=== PATIENT | female | born 1950 | race Caucasian/White ===

== ENCOUNTER 2017-06-16 10:16 | Outpatient (CLI) | payer MEDICARE, OTHER ==
--- NOTE | 2017-06-16 11:24 | SJPRAD ---
RIGHT FOOT 3 VIEWS: Date: 06/16/17 HISTORY: Right foot pain. FINDINGS/IMPRESSION: No fracture, dislocation, or bony destruction is identified. POS: [facility]
== END 2017-06-16 10:17 | disposition home or self-care (01) ==
LOC: MWLC RAD 10:16
PROVIDERS: ATTEND Internal Medicine Geriatric Medicine
DX: M79.671 Pain in right foot (principal)

== ENCOUNTER 2018-01-20 05:48 | Observation (INO) | payer MEDICARE, OTHER ==
[2018-01-19 12:44] VITALS: BMI 29.5
[2018-01-20 06:26] LABS: #Basophils 0.1 thou/uL (0.0-0.2); #Eosinphils 0.2 thou/uL (0.0-0.7); #Lymphocytes 2.8 thou/uL (1.20-3.40); #Monocytes 0.9 thou/uL (0.11-0.59); %Basophils 0.9 % (0.0-1.0); %Eosinophils 1.8 % (0.0-10.0); %Lymphocytes 28.1 % (21.0-51.0); %Monocytes 9.1 % (0.0-10.0); %Neutrophils 60.1 % (42.0-75.0); Hemoglobin 13.6 g/dL (12.0-16.0); Mean Corpuscular HGB CONC 34.4 g/dL (32.0-36.0); Mean Corpuscular Hemoglobin 31.8 pg (27.0-31.0); Mean Corpuscular Volume 92.4 fl (81.0-99.0); Mean Platelet Volume 7.5 fL (7.4-10.4); Platelet Count 227 thou/uL (130-400); RBC Distribution Width 12.3 % (11.5-14.5); Red Blood Cell (RBC) Count 4.26 mill/uL (4.20-5.40); White Blood Cell (WBC) Count 9.9 thou/uL (4.8-10.8)
[2018-01-20] MEDS ORDERED: HYDROmorphone 0.5 MG/0.5 ML SYRINGE ONE (06:28)
[2018-01-20] MEDS ORDERED: Fentanyl 250 MCG/5 ML VIAL ONE (06:28)
[2018-01-20] MEDS ORDERED: Calcium Chloride 1 GM/10 ML Abboject SYRINGE ONE (06:35)
[2018-01-20] MEDS ORDERED: Thrombin 5000 UNITS/5 ML VIAL ONE ×2 (06:35)
[2018-01-20] MEDS ORDERED: Bupivacaine HCl 0.5%/Epinephrine 1:200,000/PF 30 ml Vial ONE (06:35)
[2018-01-20] MEDS ORDERED: Lidocaine 1% w/Epinephrine 1:200K 30 ML VIAL ONE (06:35)
[2018-01-20] MEDS ORDERED: Lidocaine 4% Topical Sol 50 ML BOT ONE (06:38)
[2018-01-20 06:45] LABS: Anion Gap 9 mmol/L (10-20); BUN (Urea Nitrogen) 24 mg/dL (9.8-20.1); Calc. Creatinine Clearance 68 mL/min (70-130); Calcium 8.6 mg/dL (7.8-10.44); Carbon Dioxide 26 mmol/L (23-31); Chloride 103 mmol/L (98-107); Estimated GFR-MDRD 68; Glucose 114 mg/dL (80-115); Potassium 3.9 mmol/L (3.5-5.1); Sodium 134 mmol/L (136-145)
[2018-01-20] MEDS ORDERED: CEFAZOLIN/Water 2 GM/20 ML SYRINGE ONE (06:51)
[2018-01-20] MEDS ORDERED: Midazolam HCl 2 mg/2 ml Vial ONE (06:53)
[2018-01-20] MEDS ORDERED: Metoclopramide HCl 10 MG/2 ML VIAL ONE (08:23)
[2018-01-20] MEDS ORDERED: Ondansetron HCl/PF 4 MG/2 ML Vial ONE ×2 (08:23→10:47)
[2018-01-20] MEDS ORDERED: diphenhydrAMINE 25 MG CAP PO PRN (10:43)
[2018-01-20] MEDS ORDERED: Acetaminophen/Codeine 30-300mg Tablet PO PRN (10:43)
[2018-01-20] MEDS ORDERED: Ondansetron HCl/PF 4 MG/2 ML Vial IVP PRN (10:43)
[2018-01-20] MEDS ORDERED: Bisacodyl 10 MG SUPP PR PRN (10:43)
[2018-01-20] MEDS ORDERED: Promethazine HCl 25 MG/ML VIAL IM PRN (10:43)
[2018-01-20] MEDS ORDERED: Zolpidem Tartrate 5 MG TAB PO PRN (10:43)
[2018-01-20] MEDS ORDERED: PHENYLEPHRINE-NS 100 MCG/ML 10 ML SYRINGE ONE (10:47)
[2018-01-20] MEDS ORDERED: Glycopyrrolate 0.2 MG/ML 5 ML SYRINGE ONE (10:47)
[2018-01-20] MEDS ORDERED: Ketorolac Tromethamine 30 MG/ML VIAL ONE (10:47)
[2018-01-20] MEDS ORDERED: diphenhydrAMINE 50 MG/ML VIAL ONE (10:47)
[2018-01-20] MEDS ORDERED: PROPOFOL 200 MG/20 ML VIAL ONE (10:47)
[2018-01-20] MEDS ORDERED: Dexamethasone 20 MG/5 ML VIAL ONE (10:47)
[2018-01-20] MEDS ORDERED: Lidocaine 1% PF 5 ML VIAL ONE (10:47)
[2018-01-20] MEDS: Ketorolac Tromethamine 30 MG/ML VIAL IVP SCH ×2 (12:20→17:16)
[2018-01-20] MEDS: Lactated Ringer's 1,000 ML IV SCH ×2 (12:54→19:42)
[2018-01-20] MEDS ORDERED: Lisinopril 10 MG TAB PO SCH (14:30)
[2018-01-20] MEDS: Simethicone Chewable 80 MG TAB PO PRN ×2 (14:53→23:40)
[2018-01-20] MEDS: Acetaminophen/Codeine 30-300mg Tablet PO PRN (23:40)
[2018-01-21] MEDS: Ketorolac Tromethamine 30 MG/ML VIAL IVP SCH ×3 (00:46→13:09)
[2018-01-21] MEDS: Lactated Ringer's 1,000 ML IV SCH ×2 (03:16→13:09)
[2018-01-21] MEDS: Acetaminophen/Codeine 30-300mg Tablet PO PRN ×2 (06:09→13:20)
[2018-01-21] MEDS ORDERED: Lisinopril 10 MG TAB PO SCH (09:00)
[2018-01-21 09:35] VITALS: TEMP 97.9
[2018-01-21 10:59] VITALS: BP 131/55
[2018-01-26] MEDS ORDERED: IBANDRONATE SODIUM 150 MG PO SCH (06:00)
--- NOTE | 2018-01-30 13:09 | EKG ---
Test Reason : PREOP Blood Pressure : / mmHG Vent. Rate : 075 BPM Atrial Rate : 075 BPM P-R Int : 170 ms QRS Dur : 076 ms QT Int : 396 ms P-R-T Axes : 052 044 065 degrees QTc Int : 442 ms Normal sinus rhythm Normal ECG No previous ECGs available Confirmed by DR. Chris GORE ([id number]) on 01/30/2018 1:09:44 PM Referred By: SUN Confirmed By:DR. Chris GORE
--- NOTE | 2018-02-16 13:46 | CON ---
DATE OF PROCEDURE: 01/20/2018 PREOPERATIVE DIAGNOSES: 1. A 68-year-old female with vaginal pressure. 2. Cystocele and rectocele stage 3 and 2 respectively. 3. History of previous abdominoplasty with a desire to preserve abdominal repair. SURGEON: Dr. Idalia Bender PROCEDURE: 1. Total vaginal hysterectomy with bilateral salpingo-oophorectomy. 2. Anterior and posterior repair. 3. Enterocele repair. ESTIMATED BLOOD LOSS: Estimated blood loss was approximately 20 mL. ANESTHESIA: General. INTRAVENOUS FLUIDS: Crystalloid. CLINICAL HISTORY: This patient is a 68-year-old female who [facility]. She had her last well woman exam approximately more than 5 years prior an d had had a colposcopy in 1987 for an abnormal Pap, but all paps thereafter were normal. She also solis d 3 vaginal deliveries, one with a vacuum and a forceps assist. The other two subsequently were with out any assistance. The patient had a history of an anterior and posterior repair previously with a urethral sling in 2002 and then an abdominoplasty in 2003. The patient was evaluated and noted a sma ll uterus with normal sized ovaries with a fair amount of descensus in the pelvis and was counseled o n a robotic versus a total vaginal hysterectomy. The patient opted for total vaginal hysterectomy an d the risks, benefits and possible complications were discussed with the patient in detail and she wi shed to proceed. DETAILS OF PROCEDURE: The patient was taken to the operating room where general anesthesia was obtai letitia. She was laid in the supine position with her legs in Yellofin stirrups and she was prepped and draped in usual sterile fashion. A weighted speculum was placed into the vagina and the lateral retr actor was used to visualize the cervix. The cervix was grasped with a towel clamp x2 and a circumfer ential hydrodissection was performed with vasopressin blanching the cervical mucosa immediately adjac ent to the cervical opening. Once this was performed, a scalpel was used to open the mucosal edge an d retract the bladder off of the anterior portion of the cervix posteriorly. This also was achieved with retracting the mucosal surface off of the posterior edge of the cervix. The vesicocervical junc tion was lifted and delineated and then this was entered anteriorly with confirmation of being in the peritoneal cavity. The posterior compartment was then opened staying adjacent to the body of the ce rvix and uterus and once these 2 openings were performed the Jarod clamp was used adjacent to the ce rvix on the left side and used to grasp the tissue in between to release and clamp the uterine arteri es. Once the tissue was doubly clamped and cut in between a suture ligation was performed and the pe dicle was doubly ligated releasing the Jarod clamp once the suture ligation was complete. This was done, alternating sides on the left and the right following the uterine body into the entirety of the uterine arteries were ligated. The uterosacrals were identified towards the junction of the cervix and the uterine body and these were tagged with a stay suture for later identification. The anterior portion of the vaginal cuff was also tagged in the midline for identification purposes later and set aside. Once the uterine body was completely released from the pedicle sidewalls the uterine body wa s then delivered through the vaginal opening and sent off for pathology as a single specimen. As the cuff was open, the ovary and tubes were identified on the patient's left side. These were double li gated with the Kalpana clamp and cut to release and sent off for pathology. A suture ligation was then performed on the pedicle and then a free tie was used to doubly ligate the ovarian pedicle with exce llent hemostasis noted. Once this was released, the side wall of the vaginal opening was tagged and the peritoneal layer was anchored to the vaginal cuff lateral side wall and tagged. The same was ach ieved on the opposite side where the fallopian tubes and right ovary was identified, doubly clamped a nd ligated and sent off for pathology identification. A ligation suture was placed and excellent hem ostasis was noted after double ligation. The right peritoneal wall and vaginal cuff were then stayed tied together. Once these tags of all 4 points of the opening were identified, a running locking young ture was initiated at the anterior cuff with a moist lap in the abdomen to keep the bowel out of the suture line. Once in the midline, it was noted that there was an enterocele sac. The sac was opened and then a Barrios culdoplasty was performed to close this enterocele. Once this peritoneum was buil t up at the posterior portion, the uterosacral tags were brought together and incorporated into the v aginal cuff closure, anchoring the vaginal cuff in the pelvis. Once these were incorporated into the suture line, the continued closure of the vaginal cuff ensued with excellent hemostasis. Once the cl osure was complete the sutures were cut and the vaginal cuff retracted up into the pelvis held up by the uterosacrals. The second portion of the surgery was the anterior and posterior repair. An Allis clamp was used at the distal and proximal ends and hydrodissection with the vasopressin was performe d. The scalpel was used to filet the mucosa and the tenotomy scissors were used to retract away the mucosal sidewalls bilaterally. Once the mucosa was opened the connective tissue was gathered togethe r, an imbricating interrupted sutures closing the bulging defect and allowing for better anterior sup port. Once the defect was closed, the mucosa was trimmed and the running suture was used to close th e mucosal edge anteriorly with excellent support and hemostasis. The posterior repair was repaired i n the similar fashion with an Allis clamp on the distal and proximal ends. This defect was a much sm aller than the anterior defect. The hydrodissection with the vasopressin was performed. The mucosa was in the midline and dissected off carefully with the tenotomy scissors, being careful no t to buttonhole the mucosa. Once the defect was exposed the interrupted imbricating sutures were use d to correct the defect and retract it posteriorly with good support. After the defect was corrected the mucosa was trimmed and the suture line was closed with excellent hemostasis. The patient tolera leandra the procedure well and vaginal packing with estrogen cream was placed into the vagina for removal later. The Zuñiga catheter was noted to still drain clear urine. The patient was dedraped and clean sed and sent to the recovery room in satisfactory condition. All needle, lap, and sponge counts were correct x2 including the sponge that was placed into the vagina for bowel retraction which was remov ed prior to the closure of the vaginal cuff. There were no other issues surrounding this surgery.
== END 2018-01-21 13:54 | disposition home or self-care (01) ==
LOC: SDC 05:48 → EDSTATUS 08:57 → 3SE 10:44 → EDSTATUS 12:46
PROVIDERS: ADMIT Obstetrics & Gynecology; ATTEND Obstetrics & Gynecology
PROC: 0UT97ZZ Resection of Uterus, Via Natural or Artificial Opening (ICD-10-PCS; principal; 2018-01-20)
PROC: 0UT27ZZ Resection of Bilateral Ovaries, Via Natural or Artificial Opening (ICD-10-PCS; 2018-01-20)
PROC: 0UT77ZZ Resection of Bilateral Fallopian Tubes, Via Natural or Artificial Opening (ICD-10-PCS; 2018-01-20)
PROC: 0JQC0ZZ Repair Pelvic Region Subcutaneous Tissue and Fascia, Open Approach (ICD-10-PCS; 2018-01-20)
PROC: 0JQC0ZZ Repair Pelvic Region Subcutaneous Tissue and Fascia, Open Approach (ICD-10-PCS; 2018-01-20)
DX: N85.01 Benign endometrial hyperplasia (principal); I10 Essential (primary) hypertension; K46.9 Unspecified abdominal hernia without obstruction or gangrene; Z88.0 Allergy status to penicillin
CPT/HCPCS: 57260; 58263; 80048; 85025; 88307; 93005; 96361; 96374; G0378; 36415; 93010; J0670; J1100; J1170; J1200; J1885; J2001; J2250; J2405; J2704; J2765; J3010

== ENCOUNTER 2018-03-23 08:55 | Outpatient (CLI) | payer MEDICARE, OTHER ==
--- NOTE | 2018-04-03 10:29 | MMO ---
BILATERAL SCREENING MAMMOGRAM: History: Screening. Comparison: 2015, 2014 FINDINGS: Bilateral screening CC and MLO mammograms were performed. This study is interpreted with the assistan ce of computer aided detection. There are benign calcifications in the left breast. Scattered fibroglandular densities. Benign calcif ications within the right breast. No suspicious mass, architectural distortions or microcalcifications. IMPRESSION: BIRADS category 2 - benign findings. Continued screening recommended. POS: [facility]
== END 2018-03-23 08:56 | disposition home or self-care (01) ==
LOC: SCSMAMMO 08:55
PROVIDERS: ATTEND Internal Medicine Geriatric Medicine
DX: Z12.31 Encounter for screening mammogram for malignant neoplasm of breast (principal)
CPT/HCPCS: 77067

== ENCOUNTER 2019-04-05 08:25 | Outpatient (CLI) | payer MEDICARE, OTHER ==
--- NOTE | 2019-04-05 10:08 | MMO ---
Bilateral MAMMO Bilat Screen [facility]. CLINICAL HISTORY: Patient is 69 years old and is seen for screening. The patient has no family history of breast cancer. The patient has no personal history of cancer. VIEWS: The views performed were: bilateral craniocaudal and bilateral mediolateral oblique. FILMS COMPARED: The present examination has been compared to prior imaging studies performed at [facility] on 03/23/2018, and at [facility] on 04/20/2013, 09/13/2014 and 07/20/2016. This study has been interpreted with the assistance of computer-aided detection. MAMMOGRAM FINDINGS: There are scattered fibroglandular densities. There are no suspicious masses, suspicious calcifications, or new areas of architectural distortion. IMPRESSION: THERE IS NO MAMMOGRAPHIC EVIDENCE OF MALIGNANCY. A ROUTINE FOLLOW-UP MAMMOGRAM IN 1 YEAR IS RECOMMENDED. ACR BI-RADS Category 1 - Negative MAMMOGRAPHY NOTE: 1. A negative mammogram report should not delay a biopsy if a dominant of clinically suspicious mass is present. 2. Approximately 10% to 15% of breast cancers are not detected by mammography. 3. Adenosis and dense breasts may obscure an underlying neoplasm. Reported by: MARCELLUS SWIFT MD Electonically Signed: [id number]
--- NOTE | 2019-04-05 11:07 | MRI ---
MRI BRAIN WITHOUT CONTRAST: HISTORY: Tremors of nervous system, problems walking in a straight line. Head tremors. FINDINGS: No restricted diffusion is seen. The ventricular size is appropriate and the basilar cisterns patent . There are a few foci of T2 prolongation in the periventricular white matter consistent with mild c hronic small-vessel ischemic disease. No evidence of infarct, hemorrhage, midline shift, or abnormal extraaxial fluid collections are seen. No tonsillar herniation is noted. The visualized paranasal sinuses and mastoid air cells are well aerated. IMPRESSION: 1. No evidence of acute intracranial process. 2. Mild chronic small-vessel ischemic disease. POS: [facility]
== END 2019-04-05 08:26 | disposition home or self-care (01) ==
LOC: SCSMAMMO 08:25
PROVIDERS: ATTEND Internal Medicine Geriatric Medicine
DX: Z12.31 Encounter for screening mammogram for malignant neoplasm of breast (principal); R25.1 Tremor, unspecified; I67.82 Cerebral ischemia
CPT/HCPCS: 70551; 77067

== ENCOUNTER 2019-07-05 12:13 | Emergency (ER) | payer MEDICARE, OTHER ==
[2019-07-05] MEDS ORDERED: Ketorolac Tromethamine 30 MG/ML VIAL ONE (12:28)
[2019-07-05 12:46] LABS: #Basophils 0.2 thou/uL (0.0-0.2); #Eosinphils 0.1 thou/uL (0.0-0.7); #Lymphocytes 2.5 thou/uL (1.20-3.40); #Monocytes 1.5 thou/uL (0.11-0.59); #Neutrophils 10.8 thou/uL (1.40-6.50); %Basophils 1.2 % (0.0-1.0); %Eosinophils 0.5 % (0.0-10.0); %Lymphocytes 16.9 % (21.0-51.0); %Monocytes 9.6 % (0.0-10.0); %Neutrophils 71.8 % (42.0-75.0); Hemoglobin 13.5 g/dL (12.0-16.0); Mean Corpuscular HGB CONC 32.3 g/dL (32.0-36.0); Mean Corpuscular Hemoglobin 29.9 pg (27.0-31.0); Mean Corpuscular Volume 92.6 fL (78.0-98.0); Mean Platelet Volume 9.5 fL (7.4-10.4); Platelet Count 214 thou/uL (130-400); RBC Distribution Width 13.1 % (11.5-14.5)
[2019-07-05 12:49] LABS: Bilirubin Negative (Negative); Blood, Urine Negative (Negative); Clarity Slightly Cloudy (Clear); Glucose, Urine (Dipstick) Negative (Negative); Leukocyte Trace (Negative); Nitrite Negative (Negative); Protein, Urine (Dipstick) 30 mg/dL (Neg-Trace); RBC/HPF 0-3 HPF (0-3); Urobilinogen 0.2 mg/dL (Less than 2); WBC/HPF 0-3 HPF (0-3)
[2019-07-05 12:50] LABS: Bacteria/HPF 2+ HPF (None Seen)
[2019-07-05 13:28] LABS: ALT (SGPT) 15 U/L (8-55); AST (SGOT) 13 U/L (5-34); Albumin 3.7 g/dL (3.4-4.8); Alkaline Phosphatase 67 U/L (40-110); Anion Gap 12 mmol/L (10-20); BUN (Urea Nitrogen) 13 mg/dL (9.8-20.1); Bilirubin, Total 0.4 mg/dL (0.2-1.2); Calc. Creatinine Clearance 0 mL/min (70-130); Calcium 8.4 mg/dL (7.8-10.44); Carbon Dioxide 26 mmol/L (23-31); Chloride 104 mmol/L (98-107); Estimated GFR-MDRD 82; Globulin 2.7 g/dL (2.4-3.5); Glucose 99 mg/dL (80-115); Lipase 11 U/L (8-78); Potassium 3.9 mmol/L (3.5-5.1); Protein, Total 6.4 g/dL (6.0-8.3); Sodium 138 mmol/L (136-145)
--- NOTE | 2019-07-05 13:37 | CT ---
CT ABDOMEN AND PELVIS WITHOUT IV CONTRAST: Date: 07/05/19 INDICATION: Abdominal pain. Comparison made to CT abdomen and pelvis dated 11/10/16. FINDINGS: Lung bases are clear. Liver, spleen, and pancreas are unremarkable. Post cholecystectomy changes. Stomach and duodenum unre markable. Adrenal glands normal. Kidneys show bilateral perinephric stranding which is similar to the prior kulwant dy. No hydronephrosis. Or urinary tract calculus. Urinary bladder is contracted and not well evaluate d. The small bowel loops are normal caliber. Review of the colon reveals diverticulosis at the left colo n. There are inflammatory changes surrounding the mid left colon with numerous diverticula in this re gion. The findings are most consistent with acute diverticulitis of the mid left colon. No evidence o f extraluminal fluid, abscess, or perforation. Diverticulosis of the sigmoid colon is also noted. Aorta normal caliber. IMPRESSION: Inflammatory changes surrounding the left colon with associated diverticulosis. Acute diverticulitis is suspected. Suggest follow-up with treatment. POS: [facility]
== END 2019-07-05 13:45 | disposition home or self-care (01) ==
LOC: SCSER 12:13
DX: K57.32 Diverticulitis of large intestine without perforation or abscess without bleeding (principal); I10 Essential (primary) hypertension
CPT/HCPCS: 36415; 74176; 80053; 81003; 81015; 83605; 83690; 85025; 96361; 96374; J1885

== ENCOUNTER 2019-10-01 12:08 | Outpatient (CLI) | payer MEDICARE, OTHER ==
--- NOTE | 2019-10-01 13:03 | ULT ---
EXAM: US Soft Tissue Other PROVIDED CLINICAL HISTORY: Posterior left knee pain. COMPARISON: None FINDINGS: Limited sonographic evaluation of the left popliteal fossa was performed. There is normal luminal com pressibility and flow seen within the left popliteal vein. There is no fluid collection seen to suggest a Allen's cyst, and no mass or other cystic lesion is identified in the left popliteal fossa. IMPRESSION: 1. Normal appearance of the left popliteal fossa without findings to suggest a Allen's cyst, and no m ass is seen. 2. Normal luminal compressibility and flow in the left popliteal vein.
== END 2019-10-01 12:09 | disposition home or self-care (01) ==
LOC: BICULT 12:08
PROVIDERS: ATTEND Family Medicine
DX: M25.562 Pain in left knee (principal)
CPT/HCPCS: 76999

== ENCOUNTER 2019-12-14 10:50 | Outpatient (CLI) | payer MEDICARE, OTHER ==
--- NOTE | 2019-12-14 11:14 | RAD ---
CERVICAL SPINE AP AND LATERAL AND STANDARD: HISTORY: Cervicalgia. COMPARISON: None. FINDINGS: There is moderate to high-grade facet arthropathy of the mid cervical spine predominantly at C3-4, C4 -5, and C5-6. The lateral radiograph only demonstrates C1-C6 and C7 is obscured by the shoulder shad ows. There is 2 mm C3-4 anterolisthesis as well as C4-5 anterolisthesis. Severe degenerative disk space h eight loss at C5-6 with disk-osteophyte complex. No acute fracture is appreciated. There is large volume calcific plaque of the left carotid bulb and small volume plaque of the right c arotid bulb. Low-grade narrowing of the C1-2 articulation on the open mouth odontoid view. IMPRESSION: Moderate spondylosis as described. POS: [facility]
== END 2019-12-14 10:51 | disposition home or self-care (01) ==
LOC: BICRAD 10:50
PROVIDERS: ATTEND Family Medicine
DX: M54.2 Cervicalgia (principal); M47.812 Spondylosis without myelopathy or radiculopathy, cervical region
CPT/HCPCS: 72040

== ENCOUNTER 2020-04-07 11:07 | Outpatient (CLI) | payer MEDICARE, OTHER ==
--- NOTE | 2020-04-07 11:37 | MMO ---
Bilateral MAMMO Bilat Screen [facility]DI+LORIN. CLINICAL HISTORY: Patient is 70 years old and is seen for screening. The patient has no family history of breast cancer. The patient has no personal history of cancer. VIEWS: The views performed were: bilateral craniocaudal with tomosynthesis and bilateral mediolateral oblique with tomosynthesis. FILMS COMPARED: The present examination has been compared to prior imaging studies performed at [facility] on 03/23/2018 and 04/05/2019, and at [facility] on 09/13/2014 and 07/20/2016. This study has been interpreted with the assistance of computer-aided detection. MAMMOGRAM FINDINGS: There are scattered fibroglandular densities. Benign calcifications are noted bilaterally. There are no suspicious masses, suspicious calcifications, or new areas of architectural distortion. IMPRESSION: THERE IS NO MAMMOGRAPHIC EVIDENCE OF MALIGNANCY. A ROUTINE FOLLOW-UP MAMMOGRAM IN 1 YEAR IS RECOMMENDED. THE RESULTS OF THIS EXAM WERE SENT TO THE PATIENT. ACR BI-RADS Category 2 - Benign finding MAMMOGRAPHY NOTE: 1. A negative mammogram report should not delay a biopsy if a dominant of clinically suspicious mass is present. 2. Approximately 10% to 15% of breast cancers are not detected by mammography. 3. Adenosis and dense breasts may obscure an underlying neoplasm. Reported by: GEORGINA ALFONSO MD Electonically Signed: [id number]
== END 2020-04-07 11:08 | disposition home or self-care (01) ==
LOC: BICMAMMO 11:07
PROVIDERS: ATTEND Family Medicine
DX: Z12.31 Encounter for screening mammogram for malignant neoplasm of breast (principal)
CPT/HCPCS: 77063; 77067

== ENCOUNTER 2020-06-18 06:40 | Outpatient (CLI) | payer MEDICARE, OTHER ==
--- NOTE | 2020-06-18 07:40 | ULT ---
Sonogram abdominal aorta HISTORY: Aneurysm screening. FINDINGS: Good color and spectral Doppler flow within the abdominal aorta. No adjacent fluid. Aorta AP measurements: Proximal 1.8 cm Mid 1.9 cm Distal 1.5 cm IMPRESSION : No evidence of abdominal aortic aneurysm.
--- NOTE | 2020-06-18 09:04 | CT ---
CT CHEST WITHOUT CONTRAST PULMONARY SCREENING: HISTORY: Personal history of nicotine dependence. COMPARISON: None. FINDINGS: A few tree-in-bud nodules measure up to 4 mm posterior segment right upper lobe likely sequelae of burke ponce's history of recent pneumonia. No suspicious pulmonary nodule. Potentially significant incidentals (lung RADS category S): Negative. No new or unknown potentially significant incidental findings requiring urgent additional evaluation. Other Incidentals: Mild vascular calcifications. Right upper quadrant surgical clips. superior end plate Schmorl 's node of T11. No acute thoracic spine fracture. No acute displaced rib fracture. Pulmonary Incidentals: Mild bronchiectasis right middle lobe, likely post infectious in nature. No evidence for active bron chitis. IMPRESSION: 1. Lung RADS category 2: benign appearance or behavior. Recommend followup screening chest CT in 1 2 months. 2. Lung RADS category S: negative. No new or unknown potentially significant incidental findings r equire urgent additional evaluation. 3. Small cluster of centrilobular nodules in the posterior right upper lobe, likely sequelae of rece nt infection which has been treated. POS: [facility]
== END 2020-06-18 06:41 | disposition home or self-care (01) ==
LOC: BICULT 06:40
PROVIDERS: ATTEND Family Medicine
DX: Z12.2 Encounter for screening for malignant neoplasm of respiratory organs (principal); Z13.6 Encounter for screening for cardiovascular disorders; R91.8 Other nonspecific abnormal finding of lung field; Z87.891 Personal history of nicotine dependence
CPT/HCPCS: 76775; G0297

== ENCOUNTER 2020-08-15 10:51 | Outpatient (CLI) | payer MEDICARE, OTHER ==
--- NOTE | 2020-08-15 12:11 | RAD ---
THORACIC SPINE 3 VIEWS: HISTORY: Back pain. Thoracic spondylosis. FINDINGS: Thoracic vertebrae maintain height and alignment. There are mild to moderate degenerative changes wi th anterior and lateral osteophytes. No lytic or blastic process. The disk spaces are preserved. IMPRESSION: Mild to moderate hypertrophic degenerative changes of the thoracic spine. POS: [facility]
== END 2020-08-15 10:52 | disposition home or self-care (01) ==
LOC: BICRAD 10:51
PROVIDERS: ATTEND Family Medicine
DX: M47.814 Spondylosis without myelopathy or radiculopathy, thoracic region (principal); G89.4 Chronic pain syndrome
CPT/HCPCS: 72070

== ENCOUNTER 2020-11-20 14:54 | Outpatient (CLI) | payer MEDICARE, OTHER | END 2020-11-20 14:55 | disposition home or self-care (01) | LOC: BICRAD 14:54 | PROVIDERS: ATTEND Family Medicine | DX: R07.89 Other chest pain (principal) | CPT/HCPCS: 71046 ==

== ENCOUNTER 2020-12-25 19:30 | Outpatient (CLI) | payer MEDICARE, OTHER | END 2020-12-25 19:31 | disposition home or self-care (01) | LOC: SLEEPLAB 19:30 | PROVIDERS: ATTEND Family Medicine | DX: G47.33 Obstructive sleep apnea (adult) (pediatric) (principal); G25.81 Restless legs syndrome; G47.61 Periodic limb movement disorder; R53.83 Other fatigue; R51.9 Headache, unspecified; I10 Essential (primary) hypertension; G47.10 Hypersomnia, unspecified; G47.00 Insomnia, unspecified; E66.9 Obesity, unspecified; Z68.30 Body mass index [BMI] 30.0-30.9, adult | CPT/HCPCS: 95810 ==

== ENCOUNTER 2022-10-18 12:09 | Day surgery (SDC) | payer MEDICARE, OTHER ==
[2022-10-14 15:31] VITALS: BMI 33.3
[2022-10-18] MEDS ORDERED: PROPOFOL 200 MG/20 ML VIAL ONE (13:45)
[2022-10-18] MEDS ORDERED: Lidocaine 1% PF 5 ML VIAL ONE (13:45)
== END 2022-10-18 15:32 | disposition home or self-care (01) ==
LOC: MRI 12:09
PROVIDERS: ATTEND Family Medicine
DX: M50.11 Cervical disc disorder with radiculopathy, high cervical region (principal); M48.02 Spinal stenosis, cervical region; M25.78 Osteophyte, vertebrae; M48.04 Spinal stenosis, thoracic region; M47.22 Other spondylosis with radiculopathy, cervical region; G89.4 Chronic pain syndrome; M47.814 Spondylosis without myelopathy or radiculopathy, thoracic region; I10 Essential (primary) hypertension; M81.0 Age-related osteoporosis without current pathological fracture; R73.03 Prediabetes; J45.909 Unspecified asthma, uncomplicated; Z87.891 Personal history of nicotine dependence; Z79.82 Long term (current) use of aspirin; Z79.899 Other long term (current) drug therapy; Z79.52 Long term (current) use of systemic steroids; Z88.0 Allergy status to penicillin; Z91.048 Other nonmedicinal substance allergy status
CPT/HCPCS: 72141; J2704

== ENCOUNTER 2022-11-01 12:48 | Outpatient (CLI) | payer MEDICARE, OTHER | END 2022-11-01 12:49 | disposition home or self-care (01) | LOC: BICCT 12:48 | PROVIDERS: ATTEND Family Medicine | DX: M47.24 Other spondylosis with radiculopathy, thoracic region (principal); M47.812 Spondylosis without myelopathy or radiculopathy, cervical region; Z87.81 Personal history of (healed) traumatic fracture | CPT/HCPCS: 72128 ==

== ENCOUNTER 2023-11-10 14:51 | Outpatient (CLI) | payer MEDICARE, OTHER | END 2023-11-10 14:52 | disposition home or self-care (01) | LOC: BICRAD 14:51 | PROVIDERS: ATTEND Family Medicine | DX: M47.818 Spondylosis without myelopathy or radiculopathy, sacral and sacrococcygeal region (principal); M53.3 Sacrococcygeal disorders, not elsewhere classified | CPT/HCPCS: 72202; 72220 ==